=== PATIENT | male | born 1940 | race Two or more races ===

== ENCOUNTER 2019-01-16 07:21 | Day surgery (SDC) | payer OTHER ==
[~2019-01-16 07:21] MED LIST: GLIPIZIDE10 MG PO; HORIZANT300 MG PO; HYDRALAZINE HCL25 MG PO; LIPITOR20 MG PO; TENORMIN25 MG PO; VERAPAMIL ER240 MG PO
== END 2019-01-16 13:19 | disposition home or self-care (01) ==
LOC: AMB-ENDOS 07:21
DX: K59.09 Other constipation (principal)

== ENCOUNTER 2019-01-20 05:34 | Day surgery (SDC) | payer OTHER ==
[2019-01-20] MEDS ORDERED: PERCOCET 5-3251 EACH PO (09:23)
== END 2019-01-20 13:30 | disposition home or self-care (01) ==
LOC: CIR.AMB 05:34
DX: C80.1 Malignant (primary) neoplasm, unspecified (principal)
CPT/HCPCS: 36561; C1751